=== PATIENT | male | born 1950 | race Caucasian/White ===

== ENCOUNTER 2024-07-01 06:13 | Day surgery (SDC) | payer MEDICARE, OTHER, SELFPAY ==
[2024-07-01 07:55] VITALS: BP 118/74
[2024-07-01 07:59] VITALS: BMI 16.3
[2024-07-01 11:33] VITALS: BP 92/58
[2024-07-01 11:45] VITALS: BP 96/78
[2024-07-01 12:00] VITALS: BP 105/70
== END 2024-07-01 12:28 | disposition home or self-care (01) ==
LOC: GI 06:13
PROVIDERS: ATTENDING PHYSICIAN Internal Medicine Gastroenterology
DX: K64.0 First degree hemorrhoids (principal); D12.6 Benign neoplasm of colon, unspecified; D12.0 Benign neoplasm of cecum; D12.5 Benign neoplasm of sigmoid colon
CPT/HCPCS: 45390; 45385; 88305